=== PATIENT | male | born 1995 | race Caucasian/White ===

== ENCOUNTER 2017-01-22 09:40 | Emergency (ER) | payer OTHER ==
[~2017-01-22] VITALS: Ht 185.4 cm; Wt 77.1 kg
[2017-01-22] MEDS ORDERED: NORCO 7.5-3251 EACH PO (11:24)
[2017-01-22] MEDS ORDERED: KEFLEX500 MG PO (11:24)
== END 2017-01-22 11:35 | disposition home or self-care (01) ==
LOC: ED 09:40
PROC: 0HQFXZZ Repair Right Hand Skin, External Approach (ICD-10-PCS; principal; 2017-01-22)
DX: S62.620B Displaced fracture of middle phalanx of right index finger, initial encounter for open fracture (principal); S61.210A Laceration without foreign body of right index finger without damage to nail, initial encounter; F17.200 Nicotine dependence, unspecified, uncomplicated; W26.0XXA Contact with knife, initial encounter
CPT/HCPCS: 12002; 73140; 99283